=== PATIENT | female | born 1960 ===

== ENCOUNTER 2019-01-04 16:10 | Inpatient (IN) | payer SELFPAY ==
[2019-01-04 16:35] VITALS: BMI 29.2
[2019-01-04] MEDS ORDERED: SODIUM CHLORIDE 0.9% 500 ML INFUS.BAG IV ONE (16:53)
--- NOTE | 2019-01-04 16:55 | PDOC ---
History of Present Illness - General Chief Complaint: Alcohol intoxication Stated Complaint: Alcohol intoxication Time Seen by Provider: 01/04/19 16:37 History Source: Patient Exam Limitations: No Limitations - History of Present Illness Initial Comments: 01/04/19 16:55 HPI unidentified patient with ?history of bipolar disorder BIB EMS for AMS/ intoxication. EMS were called to patient's friend's house where she has been staying for the past 17 days. this m orning she was in usual state of health. when the friend came home, found the patient on the couch, minimally conscious but arousable; there were 2 empty bottles of Shnapps and Triple Sec. history limited 2/2 intoxication. Review of systems ROS limited 2/2 AMS/intoxication Physical exam General: intoxicated, +ETOH on breath. slurring speech HEENT: NCAT, PERRL, EOMI, clear conjunctiva, anicteric, moist mucus membranes, clear oropharynx, no oral lesions.. Neck: neck supple, FROM Resp: CTAB, normal and even respirations, no respiratory distress CVS: RRR, no murmurs, 2+ peripheral pulses throughout, no peripheral edema Abdomen: soft, NTND, no rebound or guarding. Back: nontender, normal inspection and ROM MSK: no edema, BOWEN x4, ROM intact. No clubbing or cyanosis. normal bulk and tone. Neuro: arousable to deep pain stimuli and voice. somnolent, intoxicated. slurring speech Psych: intoxicated. Skin: warm and well perfused, cap refill <2 sec, normal color, no skin discoloration or wounds. 01/04/19 17:12 Past History - Past Medical History Allergies/Adverse Reactions: Allergies Allergy/AdvReac Type Severity Reaction Status Date / Time No Allergy Information Allergy Verified 01/04/19 16:28 Available Home Medications: Ambulatory Orders NK [No Known Home Medication] 01/04/19 COPD: No Other medical history: UNKNOWN - Psycho Social/Smoking Cessation Hx Smoking History: Unknown if ever smoked Information on smoking cessation initiated: No Hx Alcohol Use: Yes Review of Systems - Review of Systems Able to Perform ROS?: No (intoxicated) *Physical Exam - Vital Signs Last Vital Signs Temp Pulse Resp BP Pulse Ox 97.5 F L 75 12 95/65 99 01/04/19 16:24 01/04/19 16:24 01/04/19 16:24 01/04/19 16:24 01/04/19 16:24 ED Treatment Course - LABORATORY CBC & Chemistry Diagram: 01/04/19 16:52 01/05/19 13:40 - RADIOLOGY Radiology Studies Ordered: Category Date Time Status HEAD CT WITHOUT CONTRAST [CT] Stat CT Scan 01/04/19 16:49 Ordered CHEST X-RAY PORTABLE* [RAD] Stat Radiology 01/04/19 16:52 Ordered Medical Decision Making - Medical Decision Making 01/04/19 17:20 Vital Signs Temp Pulse Resp BP Pulse Ox 97.5 F L 75 12 95/65 99 01/04/19 16:24 01/04/19 16:24 01/04/19 16:24 01/04/19 16:24 01/04/19 16:24 VS reviewed, soft BP, will hydrate. afebrile, remainder of VS wnl. DDx. alcohol intoxication, alcohol withdrawal. drug intoxication AMS, arrhythmia, electrolyte/metabolic derangements, dehydration, ICH/CVA, infection. Patient demonstrates clinical evidence for alcohol intoxication. she had episode of agitation from intox had to receive Haldol/ativan/ketamine to calm patient down. soft restraints for safety as pt was getting verbal and violent/aggressive, pulling out IV that was placed (previously by EMS and RN here) E/o heavy drinking of alcohol and no history of fall or injury. labs and lytes with mild hypokalemia, will replete with IV supplementation, IVF hydration. CT head to eval for alternative source of AMS, mass vs cva vs bleed. Some of the history and physical exam is limited due to the state of intoxication. All clothes were removed, all parts of the body were evaluated and there is no evidence of acute trauma. The plan is to observe patient in the ED until clinical sobriety is reached and reassess history and physical examination. 01/04/19 20:33 Discharge - Discharge Information Problems reviewed: Yes Clinical Impression/Diagnosis: Alcohol intoxication Condition: Stable - Follow up/Referral - Patient Discharge Instructions - Post Discharge Activity
[2019-01-04] MEDS ORDERED: HALOPERIDOL LACTATE 5 MG/ML IM ONE (17:06)
[2019-01-04] MEDS ORDERED: LORazepam 2 MG/ML SDV VIAL ONE ×2 (17:06→22:31)
[2019-01-04] MEDS ORDERED: HALOPERIDOL LACTATE 5 MG/ML ONE (17:06)
[2019-01-04 17:58] LABS: EOS % 1.4 % (0-4.5); HEMATOCRIT 40.4 % (32.4-45.2); HEMOGLOBIN 13.2 GM/dL (10.7-15.3); LYMPH % 30.9 % (8-40); MCH 29.2 pg (25.7-33.7); MCHC 32.8 g/dl (32.0-36.0); MEAN PLT VOLUME 8.2 fl (7.5-11.1); MONO % 6.2 % (3.8-10.2); NEUT % 60.5 % (42.8-82.8); PLATELET COUNT 260 K/MM3 (134-434); RBC 4.53 M/mm3 (3.60-5.2); RDW 14.7 % (11.6-15.6); WHITE BLOOD COUNT 8.1 K/mm3 (4.0-10.0)
[2019-01-04] MEDS ORDERED: KETAMINE HCL 200 MG/20 ML VIAL IM ONE (17:58)
[2019-01-04] MEDS ORDERED: KETAMINE HCL 500 MG/10 ML VIAL ONE (18:00)
[2019-01-04 18:10] LABS: INR 0.89 (0.83-1.09); PROTHROMBIN TIME (PATIENT) 10.5 SEC (9.7-13.0)
[2019-01-04 18:13] LABS: ALBUMIN 3.2 g/dl (3.4-5.0); ALK PHOS 121 U/L (45-117); ANION GAP 5 MMOL/L (8-16); BILIRUBIN,TOTAL 0.1 mg/dL (0.2-1); BLOOD UREA NITROGEN 10.1 mg/dL (7-18); CHLORIDE 112 mmol/L (98-107); CO2 27 mmol/L (21-32); CREATININE 0.7 mg/dL (0.55-1.3); GLUCOSE,RANDOM 95 mg/dL (74-106); POTASSIUM 3.2 mmol/L (3.5-5.1); SGOT/AST 15 U/L (15-37); SGPT/ALT 14 U/L (13-61); SODIUM 144 mmol/L (136-145); TOT PROT 6.3 g/dl (6.4-8.2)
[2019-01-04 18:28] LABS: COCAINE, UR NEGATIVE ng/ml (CUTOFF=300); METHADONE, UR NEGATIVE ng/ml (CUTOFF=300); OPIATES, URI NEGATIVE ng/ml (CUTOFF=300); PHENCYCLIDINE,URINE NEGATIVE ng/ml (CUTOFF=25); URINE AMPHETAMINES NEGATIVE ng/ml (CUTOFF=500); URINE BARBITURATES NEGATIVE ng/ml (CUTOFF=200); URINE BENZODIAZEPINES NEGATIVE ng/ml (CUTOFF=200)
--- NOTE | 2019-01-04 19:24 | PDOC ---
*Physical Exam - Vital Signs Last Vital Signs Temp Pulse Resp BP Pulse Ox 97.5 F L 75 12 95/65 99 01/04/19 16:24 01/04/19 16:24 01/04/19 16:24 01/04/19 16:24 01/04/19 16:24 ED Treatment Course - LABORATORY CBC & Chemistry Diagram: 01/04/19 16:52 01/04/19 16:52 - ADDITIONAL ORDERS Additional order review: Laboratory Results 01/04/19 01/04/19 01/04/19 18:07 16:52 16:52 PT with INR 10.50 INR 0.89 Sodium Potassium Chloride Carbon Dioxide Anion Gap BUN Creatinine Est GFR (CKD-EPI)AfAm Est GFR (CKD-EPI)NonAf Random Glucose Calcium Total Bilirubin AST ALT Alkaline Phosphatase Creatine Kinase Troponin I Total Protein Albumin Serum , Qual Negative Opiates Screen Negative Methadone Screen Negative Barbiturate Screen Negative Phencyclidine Screen Negative Ur Amphetamines Screen Negative MDMA (Ecstasy) Screen Negative Benzodiazepines Screen Negative Cocaine Screen Negative U Marijuana (THC) Screen Negative Alcohol, Quantitative 01/04/19 01/04/19 16:52 16:52 PT with INR INR Sodium 144 Potassium 3.2 L Chloride 112 H Carbon Dioxide 27 Anion Gap 5 L BUN 10.1 Creatinine 0.7 Est GFR (CKD-EPI)AfAm 135.70 Est GFR (CKD-EPI)NonAf 117.08 Random Glucose 95 Calcium 8.0 L Total Bilirubin 0.1 L AST 15 ALT 14 Alkaline Phosphatase 121 H Creatine Kinase 97 Troponin I < 0.02 Total Protein 6.3 L Albumin 3.2 L Serum , Qual Opiates Screen Methadone Screen Barbiturate Screen Phencyclidine Screen Ur Amphetamines Screen MDMA (Ecstasy) Screen Benzodiazepines Screen Cocaine Screen U Marijuana (THC) Screen Alcohol, Quantitative 341.9 H 01/04/19 16:52 RBC 4.53 MCV 89.0 MCHC 32.8 RDW 14.7 MPV 8.2 Neutrophils % 60.5 Lymphocytes % 30.9 Monocytes % 6.2 Eosinophils % 1.4 Basophils % 1.0 - Medications Given in the ED: ED Medications Discontinued Medications Generic Name Dose Route Start Last Admin Trade Name Freq PRN Reason Stop Dose Admin Haloperidol 5 mg 01/04/19 17:06 01/04/19 17:11 Haldol Injection (Fast Acting) - IM 01/04/19 17:07 5 mg ONCE ONE Administration Ketamine HCl 300 mg 01/04/19 17:58 01/04/19 18:12 Ketalar - IM 01/04/19 17:59 300 mg ONCE ONE Administration Lorazepam 2 mg 01/04/19 17:06 01/04/19 17:11 Ativan Injection - IM 01/04/19 17:07 2 mg ONCE ONE Administration Sodium Chloride 1,000 ml 01/04/19 16:53 01/04/19 16:58 Normal Saline - IV 01/04/19 16:54 1,000 ml ONCE ONE Administration Medical Decision Making - Medical Decision Making 01/04/19 19:55 Patient is an approximately 40-60 year old Vanessa Carlson here today with alcohol intoxication. Vitals normal and stable. Given haldol, ativan and ketamine. Currently obtunded. Labs wnl, head ct normal. CXR normal. Patient currently obtunded. Case d/w Ifeanyi, pending ICU evaluation. 01/05/19 06:54 ICU care not necessary. Was admitted to [facility] to Ifeanyi's service. Discharge - Discharge Information Problems reviewed: Yes Clinical Impression/Diagnosis: Alcohol intoxication Condition: Stable - Admission Yes - Follow up/Referral - Patient Discharge Instructions - Post Discharge Activity
[2019-01-04] MEDS ORDERED: KCL 10 MEQ IVPB 10 MEQ/100 ML INFUS.BAG IVPB ONE ×2 (20:43→20:44)
[2019-01-04] MEDS: KCL 10 MEQ IVPB 10 MEQ/100 ML INFUS.BAG IVPB SCH ×3 (20:44→22:06)
--- NOTE | 2019-01-04 21:30 | HP ---
Admitting History and Physical - Primary Care Physician PCP: Dr. Suggs - Admission Chief Complaint: Alcohol Intoxiation History of Present Illness: Undefied patient ( peace man) arrived to ED via EMS for AMS/intoxication. As per ED noted EMS was called to patient's ? friend's house where she was staying for past 17 days. Patient was in usual health in Am, then when friend came home in evening found patient on couch lethargy barely conscious, there were two bottles of shnapps and triple sec near patient. Unable to obtain any information or conduct ROS due to intoxication. Unable to receive any medical, surgical history patient s/p haldol, ativan for agitation , b/l wrist restraints in place. History Source: Patient Limitations to Obtaining History: Intoxication - Smoking History Smoking history: Unknown if ever smoked - Alcohol/Substance Use Hx Alcohol Use: Yes Home Medications - Allergies Allergies/Adverse Reactions: Allergies Allergy/AdvReac Type Severity Reaction Status Date / Time No Allergy Information Allergy Verified 01/04/19 16:28 Available - Home Medications Home Medications: Ambulatory Orders NK [No Known Home Medication] 01/04/19 Family Medical History Family History: Unable to Obtain Review of Systems Unable to obtain ROS, reason: alcohol intoxication Physical Examination Vital Signs: Vital Signs Temperature 98.0 F 01/04/19 21:04 Pulse Rate 83 01/04/19 21:04 Respiratory Rate 14 01/04/19 21:04 Blood Pressure 114/85 01/04/19 21:04 O2 Sat by Pulse Oximetry (%) 99 01/04/19 21:04 Constitutional: Yes: Other (intoxicated, slurred speech) Eyes: Yes: Conjunctiva Clear HENT: Yes: Atraumatic, Normocephalic Neck: Yes: Trachea Midline Cardiovascular: Yes: Regular Rate and Rhythm Respiratory: Yes: Regular, CTA Bilaterally Gastrointestinal: Yes: Normal Bowel Sounds, Soft Musculoskeletal: Yes: WNL Edema: No Neurological: Yes: Confusion, Other (intoxicated, arousable to tactile stimuli) Labs: CBC, BMP 01/04/19 16:52 01/04/19 16:52 Imaging - Results Chest X-ray: Report Reviewed (No acute pathology) Cat Scan: Report Reviewed (CT head: no acute pathology) EKG: Report Reviewed Other: Report Reviewed (cbc: unremarable Cmp: K + low supplement given) Problem List - Problems (1) AMS (altered mental status) Code(s): R41.82 - ALTERED MENTAL STATUS, UNSPECIFIED (2) Alcohol intoxication Code(s): F10.929 - ALCOHOL USE, UNSPECIFIED WITH INTOXICATION, UNSPECIFIED (3) Electrolyte abnormality Code(s): E87.8 - OTH DISORDERS OF ELECTROLYTE AND FLUID BALANCE, NEC Assessment/Plan Undefied patient ? 50-60 year old (magda Mendez) arrived to ED via EMS for AMS/ intoxication. Unable to obtain any information or conduct ROS due to intoxication. # AMS # Alcohol intoxiation ? withdrawal - CT head: no acute pathology - CXR: no acute pathology - patient was agitated, given 5mg haldol, 2 mg ativan and 300mg ketamine, patient pulling out IV placed on b/l wrist restraints - follow up UA - will admit to telemetry, monitor closely - monitor closely for DTs - safety/ fall precautions, b/l wrist restraint in place - patient still agitated refused po librium - will start ativan IV push taper (dose adjusted as per protocol) # Electrolyte imbalance - K +: 3.2 , KCL given - repeat BMP - follow up Mg+, Phos leve Diet: NPO, as patient is lethargic DVT PPX: Heparin SQ Visit type - Emergency Visit Emergency Visit: Yes ED Registration Date: 01/04/19 Care time: The patient presented to the Emergency Department on the above date and was hospitalized for further evaluation of their emergent condition. - New Patient This patient is new to me today: Yes Date on this admission: 01/04/19 - Critical Care Critical Care patient: No
[2019-01-04] MEDS ORDERED: chlordiazePOXIDE HCL 25 MG CAPSULE PO PRN (21:51)
[2019-01-04] MEDS ORDERED: SODIUM CHLORIDE 1,000 ML IV SCH (22:00)
[2019-01-04] MEDS ORDERED: THIAMINE HCL IVPB ONE (22:01)
[2019-01-04] MEDS ORDERED: FOLIC ACID IVPB ONE (22:01)
[2019-01-04] MEDS ORDERED: SODIUM CHLORIDE IVPB ONE (22:01)
[2019-01-04] MEDS ORDERED: [UNRECOGNIZED DRUG - OTHER] IVPB ONE (22:01)
[2019-01-04] MEDS ORDERED: LORazepam 2 MG/ML SDV VIAL IVPUSH PRN ×2 (22:08→23:43)
[2019-01-04] MEDS: HEPARIN NA (PORCINE) 5,000 UNITS/ML 1ML VIAL SQ SCH (22:30)
[2019-01-04 22:47] VITALS: TEMP 98.6
[2019-01-04] MEDS: chlordiazePOXIDE HCL 25 MG CAPSULE PO SCH ×2 (23:30→23:33)
[2019-01-05] MEDS: LORazepam 2 MG/ML SDV VIAL IVPUSH SCH ×2 (06:11→11:23)
--- NOTE | 2019-01-05 09:09 | PN ---
Physical Exam: SUBJECTIVE: Patient seen and examined at the bedside. She reports that she has been staying with her father, whom she states she despises. She stayed with him and he stressed her out. She drank one glass of tequila "with a lot of ice" but nothing else. No drugs, no other alcohol, per patient. OBJECTIVE: Patient comes to the ED minimally responsive, intoxicated and unidentified. Patient found by friend to be lethargic and barely conscious with alcohol near patient. She was given haldol, ativan for agitation and monitored on tele. No information initially found on patient, she was labeled as "peace man" on emar. Today, she was identified. She is awake, alert, slightly confused. Able to tell me her name, date of . Tells me that she is at a hospital in [place] but unable to tell me what the year is, remembered after a few minutes. appears very anxious. On no home medications per patient. Vital Signs Period Temp Pulse Resp BP Sys/[place] Pulse Ox Last 24 Hr 97.5 F-98.6 F 75-119 12-22 93-143/65-90 97-100 GENERAL: The patient is awake, alert. alert to person, place, not year. HEAD: Normal with no signs of trauma. EYES: PERRL, extraocular movements intact, sclera anicteric, conjunctiva clear. No ptosis. ENT: Ears normal, nares patent, oropharynx clear without exudates, moist mucous membranes. NECK: Trachea midline, full range of motion, supple. LUNGS: Breath sounds equal, clear to auscultation bilaterally, no wheezes, no crackles, no accessory muscle use. HEART: Regular rate and rhythm ABDOMEN: Soft, nontender, nondistended, normoactive bowel sounds EXTREMITIES: bruises of both arms, dark and scattered. NEUROLOGICAL: Normal speech, gait steady PSYCH: anxious SKIN: bruising Laboratory Results - last 24 hr 01/04/19 01/04/19 01/04/19 16:52 16:52 16:52 WBC 8.1 RBC 4.53 Hgb 13.2 Hct 40.4 MCV 89.0 MCH 29.2 MCHC 32.8 RDW 14.7 Plt Count 260 MPV 8.2 Absolute Neuts (auto) 4.9 Neutrophils % 60.5 Lymphocytes % 30.9 Monocytes % 6.2 Eosinophils % 1.4 Basophils % 1.0 Nucleated RBC % 0 PT with INR INR Sodium 144 Potassium 3.2 L Chloride 112 H Carbon Dioxide 27 Anion Gap 5 L BUN 10.1 Creatinine 0.7 Est GFR (CKD-EPI)AfAm 135.70 Est GFR (CKD-EPI)NonAf 117.08 Random Glucose 95 Calcium 8.0 L Total Bilirubin 0.1 L AST 15 ALT 14 Alkaline Phosphatase 121 H Creatine Kinase 97 Troponin I < 0.02 Total Protein 6.3 L Albumin 3.2 L Serum , Qual Opiates Screen Methadone Screen Barbiturate Screen Phencyclidine Screen Ur Amphetamines Screen MDMA (Ecstasy) Screen Benzodiazepines Screen Cocaine Screen U Marijuana (THC) Screen Alcohol, Quantitative 341.9 H 01/04/19 01/04/19 01/04/19 16:52 16:52 18:07 WBC RBC Hgb Hct MCV MCH MCHC RDW Plt Count MPV Absolute Neuts (auto) Neutrophils % Lymphocytes % Monocytes % Eosinophils % Basophils % Nucleated RBC % PT with INR 10.50 INR 0.89 Sodium Potassium Chloride Carbon Dioxide Anion Gap BUN Creatinine Est GFR (CKD-EPI)AfAm Est GFR (CKD-EPI)NonAf Random Glucose Calcium Total Bilirubin AST ALT Alkaline Phosphatase Creatine Kinase Troponin I Total Protein Albumin Serum , Qual Negative Opiates Screen Negative Methadone Screen Negative Barbiturate Screen Negative Phencyclidine Screen Negative Ur Amphetamines Screen Negative MDMA (Ecstasy) Screen Negative Benzodiazepines Screen Negative Cocaine Screen Negative U Marijuana (THC) Screen Negative Alcohol, Quantitative Active Medications Generic Name Dose Route Start Last Admin Trade Name Freq PRN Reason Stop Dose Admin Heparin Sodium (Porcine) 5,000 unit 01/04/19 22:00 01/04/19 22:30 Heparin - SQ 5,000 unit BID LUPILLO Administration Lorazepam 0.5 mg 01/07/19 05:00 Ativan Injection - IVPUSH 01/07/19 23:01 Q6H LUPILLO Lorazepam 0.5 mg 01/07/19 00:00 Ativan Injection - IVPUSH 01/10/19 00:00 Q4H PRN Symptoms of Withdrawal Lorazepam 0.5 mg 01/08/19 05:00 Ativan Injection - IVPUSH 01/08/19 05:01 ONCE ONE Lorazepam 1 mg 01/06/19 05:00 Ativan Injection - IVPUSH 01/06/19 23:01 0500,1100,1700,2300 LUPILLO Lorazepam 1 mg 01/04/19 23:43 01/05/19 00:25 Ativan Injection - IVPUSH 01/06/19 23:59 1 mg Q4H PRN Administration Symptoms of Withdrawal Lorazepam 1 mg 01/05/19 05:00 01/05/19 06:11 Ativan Injection - IVPUSH 1 mg Q6H LUPILLO Administration ASSESSMENT/PLAN: Problem List - Problems (1) AMS (altered mental status) Assessment/Plan: awake, alert, forgetful. psyche follow up for capacity mild tremors, upper arms CT head: no acute pathology CXR: no acute pathology In the ED, patient was agitated, given 5mg haldol, 2 mg ativan and 300mg ketamine, patient pulling out IV placed on b/l wrist restraints. Now calmer. anxious and wants to go home. explained to her she will be seen by psyche. follow up UA Monitor mental status Maintain safety On ativan IV push taper (dose adjusted as per protocol) Code(s): R41.82 - ALTERED MENTAL STATUS, UNSPECIFIED (2) Alcohol intoxication Assessment/Plan: elevated ETOH levels see CIWA score Code(s): F10.929 - ALCOHOL USE, UNSPECIFIED WITH INTOXICATION, UNSPECIFIED (3) Electrolyte abnormality Assessment/Plan: repeat labs Code(s): E87.8 - OTH DISORDERS OF ELECTROLYTE AND FLUID BALANCE, NEC Visit type - Emergency Visit Emergency Visit: Yes ED Registration Date: 01/04/19 Care time: The patient presented to the Emergency Department on the above date and was hospitalized for further evaluation of their emergent condition. - New Patient This patient is new to me today: Yes Date on this admission: 01/05/19 - Critical Care Critical Care patient: No - Discharge Referral Referred to [facility] No CIWA Score Nausea/Vomitin-No Nausea/No Vomiting Muscle Tremors: 1-None Visible, but [place] Anxiety: 4-Mod. Anxious/Guarded Agitation: 4-Moderately Restless Paroxysmal Sweats: 1-Minimal Palms Moist Orientation: 1-Uncertain about Date Tacttile Disturbances: 0-None Auditory Disturbances: 0-None Visual Disturbances: 0-None Headache: 0-None Present CIWA-Ar Total Score: 11 - Admission Criteria OASAS Guidelines: Admission for Medically Managed Detox: Requires at least one of the followin. CIWA greater than 12 2. Seizures within the past 24 hours 3. Delirium tremens within the past 24 hours 4. Hallucinations within the past 24 hours 5. Acute intervention needed for co occurring medical disorder 6. Acute intervention needed for co occurring psychiatric disorder 7. Severe withdrawal that cannot be handled at a lower level of care (continued vomiting, continued diarrhea, abnormal vital signs) requiring intravenous medication and/or fluids 8.
[2019-01-05] MEDS ORDERED: ACETAMINOPHEN 325 MG TABLET (FP) PO PRN (09:24)
[2019-01-05] MEDS: HEPARIN NA (PORCINE) 5,000 UNITS/ML 1ML VIAL SQ SCH (11:22)
--- NOTE | 2019-01-05 12:18 | EKG ---
Test Reason : Blood Pressure : / mmHG Vent. Rate : 089 BPM Atrial Rate : 089 BPM P-R Int : 142 ms QRS Dur : 082 ms QT Int : 396 ms P-R-T Axes : 076 035 058 degrees QTc Int : 481 ms NORMAL SINUS RHYTHM POSSIBLE LEFT ATRIAL ENLARGEMENT LOW VOLTAGE QRS PROLONGED QT ABNORMAL ECG NO PREVIOUS ECGS AVAILABLE Confirmed by ARLETTE LUNA MD ([id number]) on 01/05/2019 12:18:33 PM Referred By: Confirmed By:ARLETTE LUNA MD
--- NOTE | 2019-01-05 14:27 | CON.PSY ---
Psychiatry Consult Chief Complaint: ^1 Yo old aedmitted for Alcohol Intoxication. Patient reports problems at home with fATHER AND BROTHER. rEPORTS HISTORY OF ANXIETY AND has taken Benzos and sleeping agents keena waller MD in [place]. Denies any suicidal ideas or plans. Not Homicidal. Symptoms: reports: Anxiety - Previous Psychiatric Treatment Outpatient: More than 6 mos ago Inpatient: None - Previous Substance Abuse Treatment Outpatient: None Inpatient: None - Reason for Previous Treatment Reason for Previous Treatment: Anxiety or Panic Disorder, Alcohol Abuse - Current Medications Current Medications: Active Medications Acetaminophen (Tylenol -) 650 mg PO Q6H PRN PRN Reason: HEADACHE Heparin Sodium (Porcine) (Heparin -) 5,000 unit SQ BID ON LICENSE OF [facility] Last Admin: 01/05/19 11:22 Dose: Not Given Lorazepam (Ativan Injection -) 0.5 mg IVPUSH Q6H ON LICENSE OF [facility] Stop: 01/07/19 23:01 Lorazepam (Ativan Injection -) 0.5 mg IVPUSH Q4H PRN PRN Reason: Symptoms of Withdrawal Stop: 01/10/19 00:00 Lorazepam (Ativan Injection -) 0.5 mg IVPUSH ONCE ONE Stop: 01/08/19 05:01 Lorazepam (Ativan Injection -) 1 mg IVPUSH 0500,1100,1700,2300 LUPILLO Stop: 01/06/19 23:01 Lorazepam (Ativan Injection -) 1 mg IVPUSH Q4H PRN PRN Reason: Symptoms of Withdrawal Stop: 01/06/19 23:59 Last Admin: 01/05/19 00:25 Dose: 1 mg Lorazepam (Ativan Injection -) 1 mg IVPUSH Q6H ON LICENSE OF [facility] Last Admin: 01/05/19 11:23 Dose: 1 mg - Allergies Allergies: Allergies Allergy/AdvReac Type Severity Reaction Status Date / Time No Allergy Information Allergy Verified 01/04/19 16:28 Available - Current Living Status Usual Living Arrangement: Alone - Current Mental Status Evaluation Appearance: Well Groomed Attitude: Cooperative - Affect Affect: Constrictive Appropriateness: Appropriate to Content - Mood Mood: Anxious - Speech/Language Expressive: Coherent - Psychomotor Activity Psychomotor Activity: Normal - Thought Process Thought Process: Intact - Thought Content Hallucinations: Absent Delusions: Absent - Self Perception Self Perception: No Impairment - Cognition Attention: Alert Orientation: Time Memory, Immediate Recall: Intact Memory, Short Term: 3/3 Memory, Remote with Promptin/3 - Concentration Serial Sevens Intact: No Simple Calculations Intact: Yes - Abstraction Proverb Interpretation: Intact Judgement: Minimally Impaired - Insight Insight: Intact - Impulse Control Impulse Control: Minimally Impaired - Suicidal Ideation Suicidal Ideation: No - Homicidal Ideation Homicidal Ideation: No Assessment/Plan 1) No acute Mental illness 2) Patient is not Suicidal or Homicidal or Psychotic at this time. 3) Discharge home when medically clear. will see her MD in [place].
[2019-01-05 14:31] LABS: CALCIUM 8.9 mg/dL (8.5-10.1); CREATININE 0.6 mg/dL (0.55-1.3); PHOSPHOROUS 3.6 mg/dL (2.5-4.9); POTASSIUM 3.8 mmol/L (3.5-5.1)
[2019-01-05 14:43] VITALS: BP 144/78; PULSE 93
--- NOTE | 2019-01-05 15:15 | DS ---
Physical Exam: SUBJECTIVE: Patient seen and examined OBJECTIVE: Patient comes to the ED minimally responsive, intoxicated and unidentified. Patient found by friend to be lethargic and barely conscious with alcohol near patient. She was given haldol, ativan for agitation and monitored on tele. No information initially found on patient, she was labeled as "peace man" on emar. Today, she was identified. She is awake, alert, slightly confused. Able to tell me her name, date of . Tells me that she is at a hospital in [place] but unable to tell me what the year is, remembered after a few minutes. appears very anxious. On no home medications per patient. cleared for d/c by ezequiele. pt signed out ama. Vital Signs Period Temp Pulse Resp BP Sys/[place] Pulse Ox Last 24 Hr 97.5 F-98.6 F 75-119 12-22 93-144/65-94 97-100 PHYSICAL EXAM GENERAL: The patient is awake, alert. alert to person, place, not year. HEAD: Normal with no signs of trauma. EYES: PERRL, extraocular movements intact, sclera anicteric, conjunctiva clear. No ptosis. ENT: Ears normal, nares patent, oropharynx clear without exudates, moist mucous membranes. NECK: Trachea midline, full range of motion, supple. LUNGS: Breath sounds equal, clear to auscultation bilaterally, no wheezes, no crackles, no accessory muscle use. HEART: Regular rate and rhythm ABDOMEN: Soft, nontender, nondistended, normoactive bowel sounds EXTREMITIES: bruises of both arms, dark and scattered. NEUROLOGICAL: Normal speech, gait steady PSYCH: anxious SKIN: bruising LABS Laboratory Results - last 24 hr 01/04/19 01/04/19 01/04/19 16:52 16:52 16:52 WBC 8.1 RBC 4.53 Hgb 13.2 Hct 40.4 MCV 89.0 MCH 29.2 MCHC 32.8 RDW 14.7 Plt Count 260 MPV 8.2 Absolute Neuts (auto) 4.9 Neutrophils % 60.5 Lymphocytes % 30.9 Monocytes % 6.2 Eosinophils % 1.4 Basophils % 1.0 Nucleated RBC % 0 PT with INR INR Sodium 144 Potassium 3.2 L Chloride 112 H Carbon Dioxide 27 Anion Gap 5 L BUN 10.1 Creatinine 0.7 Est GFR (CKD-EPI)AfAm 135.70 Est GFR (CKD-EPI)NonAf 117.08 Random Glucose 95 Calcium 8.0 L Phosphorus Magnesium Total Bilirubin 0.1 L AST 15 ALT 14 Alkaline Phosphatase 121 H Creatine Kinase 97 Troponin I < 0.02 Total Protein 6.3 L Albumin 3.2 L Serum , Qual Opiates Screen Methadone Screen Barbiturate Screen Phencyclidine Screen Ur Amphetamines Screen MDMA (Ecstasy) Screen Benzodiazepines Screen Cocaine Screen U Marijuana (THC) Screen Alcohol, Quantitative 341.9 H 01/04/19 01/04/19 01/04/19 16:52 16:52 18:07 WBC RBC Hgb Hct MCV MCH MCHC RDW Plt Count MPV Absolute Neuts (auto) Neutrophils % Lymphocytes % Monocytes % Eosinophils % Basophils % Nucleated RBC % PT with INR 10.50 INR 0.89 Sodium Potassium Chloride Carbon Dioxide Anion Gap BUN Creatinine Est GFR (CKD-EPI)AfAm Est GFR (CKD-EPI)NonAf Random Glucose Calcium Phosphorus Magnesium Total Bilirubin AST ALT Alkaline Phosphatase Creatine Kinase Troponin I Total Protein Albumin Serum , Qual Negative Opiates Screen Negative Methadone Screen Negative Barbiturate Screen Negative Phencyclidine Screen Negative Ur Amphetamines Screen Negative MDMA (Ecstasy) Screen Negative Benzodiazepines Screen Negative Cocaine Screen Negative U Marijuana (THC) Screen Negative Alcohol, Quantitative 01/05/19 13:40 WBC RBC Hgb Hct MCV MCH MCHC RDW Plt Count MPV Absolute Neuts (auto) Neutrophils % Lymphocytes % Monocytes % Eosinophils % Basophils % Nucleated RBC % PT with INR INR Sodium 141 Potassium 3.8 Chloride 109 H Carbon Dioxide 24 Anion Gap 8 BUN 11.0 Creatinine 0.6 Est GFR (CKD-EPI)AfAm 114.82 Est GFR (CKD-EPI)NonAf 99.07 Random Glucose 87 Calcium 8.9 Phosphorus 3.6 Magnesium 2.0 Total Bilirubin AST ALT Alkaline Phosphatase Creatine Kinase Troponin I Total Protein Albumin Serum , Qual Opiates Screen Methadone Screen Barbiturate Screen Phencyclidine Screen Ur Amphetamines Screen MDMA (Ecstasy) Screen Benzodiazepines Screen Cocaine Screen U Marijuana (THC) Screen Alcohol, Quantitative HOSPITAL COURSE: Date of Admission:01/04/19 Date of Discharge: 01/05/19 patient deemed to have capacity to make her own medical decisions by psyche. patient signed out ama. elevated ciwa score, refusing detox. Minutes to complete discharge: 45 Discharge Summary Problems reviewed: Yes Reason For Visit: ALCOHOLIC INTOXICATION Condition: Stable - Instructions Disposition: AGAINST MEDICAL ADVICE - Home Medications Comprehensive Discharge Medication List: Ambulatory Orders NK [No Known Home Medication] 01/04/19 Problem List - Problems (1) AMS (altered mental status) Code(s): R41.82 - ALTERED MENTAL STATUS, UNSPECIFIED (2) Alcohol intoxication Code(s): F10.929 - ALCOHOL USE, UNSPECIFIED WITH INTOXICATION, UNSPECIFIED (3) Electrolyte abnormality Code(s): E87.8 - OTH DISORDERS OF ELECTROLYTE AND FLUID BALANCE, NEC This patient is new to me today: Yes Date on this admission: 01/05/19 Emergency Visit: Yes ED Registration Date: 01/04/19 Care time: The patient presented to the Emergency Department on the above date and was hospitalized for further evaluation of their emergent condition. Critical Care patient: No - Discharge Referral Referred to [facility] No
[2019-01-06] MEDS ORDERED: chlordiazePOXIDE HCL 25 MG CAPSULE PO SCH (05:00)
[2019-01-06] MEDS ORDERED: LORazepam 2 MG/ML SDV VIAL IVPUSH SCH (05:00)
[2019-01-07] MEDS ORDERED: chlordiazePOXIDE HCL 10 MG CAPSULE PO PRN
[2019-01-07] MEDS ORDERED: LORazepam 2 MG/ML SDV VIAL IVPUSH PRN
[2019-01-07] MEDS ORDERED: chlordiazePOXIDE HCL 10 MG CAPSULE PO SCH (05:00)
[2019-01-07] MEDS ORDERED: LORazepam 2 MG/ML SDV VIAL IVPUSH SCH (05:00)
[2019-01-08] MEDS ORDERED: chlordiazePOXIDE HCL 10 MG CAPSULE PO SCH (05:00)
[2019-01-08] MEDS ORDERED: LORazepam 2 MG/ML SDV VIAL IVPUSH ONE (05:00)
[2019-01-09] MEDS ORDERED: chlordiazePOXIDE HCL 10 MG CAPSULE PO ONE (05:00)
== END 2019-01-05 14:53 | disposition left against medical advice (07) | DRG 770 ==
LOC: JER 16:10 → EDBD 20:06 → JERBED 20:06 → J4W 23:16
PROVIDERS: ADMIT Internal Medicine; ATTEND Nurse Practitioner Family
DX: F10.929 Alcohol use, unspecified with intoxication, unspecified (principal); R41.82 Altered mental status, unspecified; E87.8 Other disorders of electrolyte and fluid balance, not elsewhere classified; E87.6 Hypokalemia; E86.0 Dehydration
CPT/HCPCS: 36415; 70450-TC; 71045-TC-FY; 80048; 80053; 80307; 82550; 83735; 84100; 84484; 84703; 85025; 85610; 93005; 93010; 99285-25; J1644; J7030

== ENCOUNTER 2019-02-11 19:55 | Emergency (ER) | payer SELFPAY ==
[2019-02-11 20:00] VITALS: BP 124/76; PULSE 82; TEMP 97.6; BMI 24.7
--- NOTE | 2019-02-11 20:04 | PDOC ---
History of Present Illness - General Chief Complaint: Alcohol intoxication Stated Complaint: INTOX - History of Present Illness Initial Comments: The pt is a 58F w/ a history of EtOH abuse who presents for evaluation of intoxication. Her family member called the ED to state that she had been drinking today. Upon further questioning with the pt, she endorses EtOH use today but does not know how much. She denies injury or pain or any other complaints. She states that she would like to go home. 02/11/19 22:44 Past History - Past Medical History Allergies/Adverse Reactions: Allergies Allergy/AdvReac Type Severity Reaction Status Date / Time No Allergy Information Allergy Verified 02/11/19 19:58 Available Home Medications: Ambulatory Orders NK [No Known Home Medication] 01/04/19 COPD: No - Psycho Social/Smoking Cessation Hx Smoking History: Unknown if ever smoked Have you smoked in the past 12 months: No Information on smoking cessation initiated: No Hx Alcohol Use: Yes Drug/Substance Use Hx: No (unknown) Review of Systems - Review of Systems Able to Perform ROS?: Yes Comments:: GENERAL/CONSTITUTIONAL: No fever or chills HEAD, EYES, EARS, NOSE AND THROAT: No change in vision. No change in hearing. No sore throat CARDIOVASCULAR: No chest pain or shortness of breath RESPIRATORY: Denies cough GASTROINTESTINAL: No nausea, vomiting, diarrhea or constipation GENITOURINARY: No dysuria, frequency, or change in urination MUSCULOSKELETAL: No joint or muscle swelling or pain. No neck or back pain SKIN: No rash NEUROLOGIC: No headache, or change in strength/sensation ENDOCRINE: No increased thirst. No abnormal weight change HEMATOLOGIC/LYMPHATIC: No anemia, easy bleeding, or history of blood clots ALLERGIC/IMMUNOLOGIC: No hives or skin allergy 02/11/19 20:03 Is the patient limited Georgian proficient: No *Physical Exam - Vital Signs Last Vital Signs Temp Pulse Resp BP Pulse Ox 97.6 F 82 16 124/76 97 02/11/19 19:58 02/11/19 19:58 02/11/19 19:58 02/11/19 19:58 02/11/19 19:58 - Physical Exam Comments: GENERAL: Awake, alert, and oriented to person/place/time, in no acute distress HEAD: No signs of trauma, normocephalic, atraumatic EYES: PERRLA, EOMI, sclera anicteric, conjunctiva clear ENT: Hearing grossly normal, nares patent, oropharynx clear without exudates. Moist mucosa LUNGS: No distress, speaks in full sentences, clear to auscultation bilaterally HEART: Regular rate and rhythm, normal S1 and S2, no murmurs appreciated, peripheral pulses normal and equal bilaterally ABDOMEN: Soft, nontender, normoactive bowel sounds. No guarding, no rebound EXTREMITIES: Normal inspection, Normal range of motion, no edema. No clubbing or cyanosis NEUROLOGICAL: Cranial nerves II through XII grossly intact. Normal speech, no focal sensorimotor deficits SKIN: Warm, Dry 02/11/19 20:04 ED Treatment Course - LABORATORY CBC & Chemistry Diagram: 02/11/19 20:40 02/11/19 20:40 - RADIOLOGY Radiograph Interpretation: THIS IS A PRELIMINARY REPORT FROM [facility] DATE OF SERVICE: 2019-02-11 21:57:14 EXAM:CT HEAD WITHOUT CONTRAST IMPRESSION: No evidence of acute intracranial abnormality 02/11/19 23:20 THIS IS A PRELIMINARY REPORT FROM [facility] DATE OF SERVICE: 2019-02-11 21:54:41 EXAM: CT Cervical Spine without IV contrast IMPRESSION: No acute fracture or subluxation in the cervical spine. 02/11/19 23:37 Medical Decision Making - Medical Decision Making The pt is a 58F w/ a history of EtOH abuse who presents for evaluation of intoxication. CT head and c-spine to evaluate for fx/bleed Labs sent No leukocytosis No anemia Mild hypokalemia, ECG w/ NSR; HR 82; narrow QRS; QTc 483; no axis deviation; no NICOLE No LEXIS LFTs unremarkable Trop I neg Pt oriented x3 at this time, with clear speech Pt states she would like to go home CT reads pending 02/11/19 22:46 Pt states that she would like to go home and does not want to stay here any longer. Pt removed own IV At this time the pt is oriented and able to make decisions. She was offered further medical care but refused 02/11/19 22:59 CT head w/o acute pathology CT c-spine w/o acute pathology 02/11/19 23:37 Discharge - Discharge Information Problems reviewed: Yes Clinical Impression/Diagnosis: Alcohol intoxication Qualifiers: Complication of substance-induced condition: uncomplicated Qualified Code(s): F10.920 - Alcohol use, unspecified with intoxication, uncomplicated Condition: Improved Disposition: ELOPED - Admission No - Follow up/Referral Referrals: [facility] [place] [Provider Group] - Patient Discharge Instructions Patient Printed Discharge Instructions: DI for Alcohol Abuse Additional Instructions: You were seen in the Emergency Department for evaluation of intoxication. Your potassium was a little low, be sure to address it at your next doctor's visit. Review the handout provided at discharge. Follow up with your primary care provider within a week. Return to the Emergency Department if you develop fevers, chest pain, trouble breathing, worsening pain, change in sensation, worsening symptoms, or any new/ concerning symptoms. - Post Discharge Activity
--- NOTE | 2019-02-11 20:13 | PDOC ---
Attending Attestation - Resident Resident Name: Austin Montana - ED Attending Attestation I have performed the following: I have examined & evaluated the patient, The case was reviewed & discussed with the resident, I agree w/resident's findings & plan - HPI HPI: 02/11/19 20:30 see resident hpi - Physicial Exam PE: 02/11/19 20:30 agree with resident exam - Medical Decision Making 02/11/19 20:31 58-year-old female with history of alcohol abuse now lethargic and unable to provide reason for visit Plan for CT scan head and cervical spine Chest x-ray, labs, EKG Will reevaluate pending results
[2019-02-11 20:51] LABS: BASO % 0.3 % (0-2.0); EOS % 2.4 % (0-4.5); HEMATOCRIT 40.3 % (32.4-45.2); HEMOGLOBIN 13.1 GM/dL (10.7-15.3); LYMPH % 34.7 % (8-40); MCH 28.6 pg (25.7-33.7); MCHC 32.5 g/dl (32.0-36.0); MEAN PLT VOLUME 8.4 fl (7.5-11.1); MONO % 6.1 % (3.8-10.2); NEUT % 56.5 % (42.8-82.8); PLATELET COUNT 309 K/MM3 (134-434); RBC 4.57 M/mm3 (3.60-5.2); RDW 14.2 % (11.6-15.6); WHITE BLOOD COUNT 10.9 K/mm3 (4.0-10.0)
[2019-02-11 21:18] LABS: ALBUMIN 3.3 g/dl (3.4-5.0); BILIRUBIN,TOTAL 0.1 mg/dL (0.2-1); BLOOD UREA NITROGEN 6.8 mg/dL (7-18); CALCIUM 8.7 mg/dL (8.5-10.1); CREATININE 0.6 mg/dL (0.55-1.3); POTASSIUM 3.4 mmol/L (3.5-5.1); TOT PROT 6.6 g/dl (6.4-8.2)
--- NOTE | 2019-02-12 16:59 | EKG ---
Test Reason : Blood Pressure : / mmHG Vent. Rate : 082 BPM Atrial Rate : 082 BPM P-R Int : 140 ms QRS Dur : 080 ms QT Int : 414 ms P-R-T Axes : 073 043 053 degrees QTc Int : 483 ms NORMAL SINUS RHYTHM LOW VOLTAGE QRS PROLONGED QT ABNORMAL ECG WHEN COMPARED WITH ECG OF 04-JAN-2019 20:11, NO SIGNIFICANT CHANGE WAS FOUND Confirmed by EDITH VERNON MD ([id number]) on 02/12/2019 4:58:29 PM Referred By: Confirmed By:EDITH VERNON MD
== END 2019-02-11 23:00 | disposition left against medical advice (07) ==
LOC: JER 19:55
DX: F10.120 Alcohol abuse with intoxication, uncomplicated (principal); Y90.8 Blood alcohol level of 240 mg/100 ml or more
CPT/HCPCS: 36415; 70450-TC; 71045-TC-FY; 72125-TC; 80053; 80307; 84484; 85025; 93005; 93010; 99284-25